=== PATIENT | female | born 2000 | race Caucasian/White ===

== ENCOUNTER 2022-10-03 21:29 | Emergency (ER) | payer BC, SELFPAY ==
[2022-10-03 21:35] VITALS: BP 132/85; PULSE 84; RESP 18; TEMP 36.2; O2SAT 99
--- NOTE | 2022-10-03 21:50 | CRLHL7_ITS ---
For Patients: As a result of the Century Cures Act, medical imaging exams and procedure reports are released immediately into your electronic medical record. You may view this report before your referring provider. If you have questions, please contact your health care provider. INDICATION: Chest pain. TECHNIQUE: Chest 1 views. COMPARISON: None. FINDINGS: Cardiovascular and mediastinum: Heart size and vasculature are normal in caliber and appearance. Lungs and pleural spaces: The lungs are clear. No pleural effusion or pneumothorax. Bones and soft tissues: No significant findings. IMPRESSION: No evidence of an acute pulmonary process. Dictated by Eitan Carbone MD @ 10/03/2022 10:29:09 PM (Electronically Signed)
--- NOTE | 2022-10-03 21:50 | ED_ITS ---
HPI - General Adult General Chief complaint: Cough Stated complaint: has a cold, dizziness Time Seen by Provider: 10/03/22 21:32 Source: patient Mode of arrival: ambulatory Limitations: no limitations History of Present Illness HPI narrative: Patient is a 21-year-old female coming in today complaining of cold-like symptoms for about 1 week. Sore throat, achiness, and a cough that just has not gotten any better. She has taken 3 at home COVID tests which have been negative. She denies any fevers that she is aware of. She came in today because she had an episode where she felt very dizzy for 1 minute. She felt lightheaded in the room felt distorted this has since passed and she has been feeling fine since. She is also concerned because she has a swollen lymph node in her neck and she felt that her left upper lip was swelling earlier but this has since resolved also. She denies any skin rashes. No changes in her appetite. No diarrhea. No chest or abdominal pain. Related Data Allergies Allergy/AdvReac Type Severity Reaction Status Date / Time No Known Drug Allergies Allergy Verified 10/03/22 21:39 Review of Systems Status of ROS: Reports: 10 or more systems reviewed and unremarkable except as noted in History and below [facility] Social History Smoking Status: Never smoker Do you use any of these nicotine containing products: None Second hand tobacco smoke exposure: No How often do you have a drink containing alcohol: never AUDIT-C Alcohol total score: 0 Non-prescribed substance use: denies use Exam Narrative: Exam Narrative: Well-nourished well-developed patient in no acute distress. Alert and oriented. Answers questions appropriately. Mood and affect are appropriate. Thoughts are goal oriented and rational. No tangential or magical thinking noted. Patient speaks in full sentences without needing to catch her breath. Does not appear ill or toxic. HEENT: Normocephalic atraumatic. Pupils are equally round reactive to light. Extraocular muscles are intact. Conjunctivae are moist without any icterus noted. Moist mucous membranes. Posterior pharynx is normal. Neck is soft with left-sided cervical lymphadenopathy. TMs are clear bilaterally. Lips appear normal. Tongue appears normal. Cardiovascular: Heart is regular rate and rhythm S1 and S2 are present without any murmurs. Lungs: Clear to auscultation bilaterally no wheezes rhonchi or rales are apprec iated. Patient takes deep breaths without any discomfort. Skin: Well perfused without any obvious rashes. Const: Vital Signs, click to edit/add: Vital Signs - 24 hr 10/03/22 21:35 Temperature 97.2 F L Pulse Rate [Left P ulse Oximeter] 84 Respiratory Rate 18 Blood Pressure [Ri ght Upper Arm] 132/85 Pulse Oximetry 99 Oxygen Delivery Me thod Room Air Course Course Hospital Course: Chest x-ray was done, read by me, does not show any acute infiltrates. Triple swab was negative. Strep was negative. Vital Signs Vital signs: Initial Vital Signs Respiratory Effort Spontaneous 10/03/22 21:34 Respiratory Depth Normal 10/03/22 21:34 Respiratory Pattern 10/03/22 21:34 Vital Signs Temperature 97.2 F L 10/03/22 21:35 Pulse Rate 84 10/03/22 21:35 Respiratory Rate 18 10/03/22 21:35 Blood Pressure 132/85 10/03/22 21:35 Pulse Oximetry 99 10/03/22 21:35 Oxygen Delivery Method 10/03/22 21:35 Temperature 97.2 F L 10/03/22 21:35 Pulse Rate 84 10/03/22 21:35 Respiratory Rate 18 10/03/22 21:35 Blood Pressure 132/85 10/03/22 21:35 Pulse Oximetry 99 10/03/22 21:35 Oxygen Delivery Method 10/03/22 21:35 Medical Decision Making MDM Narrative Medical decision making narrative: 21-year-old female with a URI. We discussed symptomatic treatment. As far as her episode of dizziness we discussed that this can happen when you are ill slightly dehydrated. Given that known lasted for 1 minute and has since resolved I do not think it is anything we need to be concerned about. as far as her lip swelling-she did receive a dose of Benadryl at when she was here. Again, this appears to have mostly resolved by the time she got here. We did discuss returning to the ER for any other concerning issues in certainly if she is not improving over the next few days. Patient had no other questions. Lab Data Lab results reviewed: Yes I reviewed the patient's lab results Labs: Lab Results 10/03/22 10/03/22 Range/Units 21:45 21:45 SARS-CoV-2 (PCR) Negative SARS-CoV-2 (Negative) Influenza Type A (PCR) Negative PCR FLU A (Negative) Influenza Type B (PCR) Negative PCR FLU B (Negative) RSV (PCR) Negative PCR RSV (Negative) Group A Strep DNA NOT DETECTED (Not Detectd) Imaging Data Chest x-ray: Attestation: I have reviewed the pertinent imaging results. Radiologist's impression: Chest 1 views. COMPARISON: None. FINDINGS: Cardiovascular and mediastinum: Heart size and vasculature are normal in caliber and appearance. Lungs and pleural spaces: The lungs are clear. No pleural effusion or pneumothorax. Bones and soft tissues: No significant findings. IMPRESSION: No evidence of an acute pulmonary process. Discharge Plan Discharge Clinical Impression: URI (upper respiratory infection) Patient Disposition: Home, Self-Care Condition: Stable Additional Instructions: Make sure to stay well hydrated and get plenty of rest. Okay to Tylenol as needed for achiness. Return to the ER if you feel like your symptoms are worsening over the next several days instead of getting air. We will call you with the results of your COVID, influenza and strep swabs. Stand Alone Forms: [employer] Info Instructions
[2022-10-03] MEDS: diphenhydrAMINE 25 MG CAPSULE PO (22:28)
[2022-10-03 22:30] LABS: Strep A DNA Probe* NOT DETECTED (Not Detectd)
[2022-10-03 22:41] LABS: PCR FLU A Negative PCR FLU A (Negative); PCR FLU B Negative PCR FLU B (Negative); PCR RSV Negative PCR RSV (Negative)
[2022-10-03 22:43] LABS: SARS PCR* Negative SARS-CoV-2 (Negative)
--- OUTSIDE RECORDS SUMMARY | 2022-10-31 12:17 | XMS_ITS ---
:2000 Author Organization [facility] Address [address] [place], [place] [id number] Care Team Providers Name Role Phone Shahzad Mcnamara Unavailable Unavailable PROBLEMS Type Condition ICD9-CM Code YRB31-HF Code Onset Condition SNO MED Code Dates Status Problem Allergic J30.1 Active 74241828 rhinitis due to pollen Problem Nasal congestion J34.89 Active 646 67446 with rhinorrhea Problem Chronic allergic J30.9 Active 615 22438 rhinitis Problem Other allergic J30.89 Active 70702 004 rhinitis ALLERGIES No Known Allergies ENCOUNTERS Encounter Location Date Diagnosis [facility] [id number] [place] [address], May, [facility] [place] [phone] [facility] [address] [place] [address], Feb, [facility] [place] [id number] [facility] [address] [place] [address], Feb, [facility] [place] [id number] [facility] [id number] [place] [address], January, [facility] rhinitis due to [facility] [place] [id number] pollen J30.1 ; Other allergic rhiniti s J30.89 and Nasal conges tion with rhinorrhea J34.89 [facility] [id number] [place] [address], Dec, [facility] [place] [id number] [facility] [address] [place] [address], Dec, Primary Care Physician [facility] [place] [id number] rhinitis J30.9 IMMUNIZATIONS No Known Immunizations SOCIAL HISTORY Never Assessed REASON FOR REFERRAL FUNCTIONAL STATUS PLAN OF CARE Activity Details Follow Up 1 Year, prn Reason: Future/Pending Procedure PRICK PUNCTURE# Future/Pending Procedure PRICK PUNCTURE# VITAL SIGNS Height 65.5 in 2021-01-29 Height 65.5 in 2018-12-27 Weight 122.2 lbs 2021-01-29 Weight 120.4 lbs 2018-12-27 Temperature 98.2 degrees Fahrenheit 2021-01-29 Temperature 97.9 degrees Fahrenheit 2018-12-27 Heart Rate 70 /min 2021-01-29 Heart Rate 66 /min 2018-12-27 Respiratory Rate 16 /min 2021-01-29 Respiratory Rate 16 /min 2018-12-27 BMI 20.02 kg/m2 2021-01-29 BMI 19.73 kg/m2 2018-12-27 Blood pressure systolic 102 mm Hg 2021-01-29 Blood pressure diastolic 60 mm Hg 2021-01-29 MEDICATIONS Medication Instructions Dosage Frequency Start End Duration Statu s Date Date Lexapro 10 MG Orally Once a 1 tablet 24h 30 day(s) A ctive day Flonase Nasally Once a 2 spray in 24h Active Allergy Relief day each 50 MCG/ACT nostril Accutane Not-Takin g Myorisan 30 MG TAKE 1 30 Not-Takin CAPSULE BY g MOUTH TWICE DAILY FOR 30 DAYS Cetirizine HCl Orally Once a 1 tablet 24h Ac tive 10 MG day PROCEDURES Procedure Date Ordered Result Body Site Normal BP January 29, 2021 Normal BMI January 29, 2021 PERCUT ALLERGY SKIN TESTS December 27, 2018 PERCUT ALLERGY SKIN TESTS January 29, 2021 RESULTS No Results REASON FOR VISIT allergy inj LMTCB 05/09/ cb 05/15, 1st injection will be late, Start IT N/A 02/10, Sheron is a 20 y, F here for BRANDY re: chronic allergic rhinitis (pollen). Pt interested in starting IT. Flonase/Cetirizine, IT/Testing Question , allergy testing Insurance Providers [facility] Health Member Patient Patient Patient Patient Patient Subscriber Subscriber Subscriber Group Insurance Plan Plan Plan Plan ID Relationship Address Phone Name Date of ID Name Date of No Type Insurance Insurance Insurance Coverage to Subscriber Address Phone Name Dates [address]UE [address] SARIAH Rogers 2000 4 [id number] [id number] [place] [address] [address] Sue 2000 4 [id number] [id number] [place] [address]
== END 2022-10-03 22:39 | disposition home or self-care (01) ==
LOC: ED 22:44
PROVIDERS: Emergency Provider Family Medicine
DX: J06.9 Acute upper respiratory infection, unspecified (principal)
CPT/HCPCS: 71045; 87502; 87634; 87635; 87651; 99284; A9270

== ENCOUNTER 2022-11-20 17:59 | Outpatient (CLI) | payer BC, SELFPAY | END 2022-11-20 18:00 | disposition home or self-care (01) | LOC: NFLDUCREF 18:00 | PROVIDERS: Visit Provider Registered Nurse | DX: R19.7 Diarrhea, unspecified (principal) | CPT/HCPCS: 87493 ==

== ENCOUNTER 2024-01-12 14:13 | Emergency (ER) | payer BC, SELFPAY ==
[2024-01-12 14:18] VITALS: BP 118/75; PULSE 74; RESP 18; TEMP 37; O2SAT 98; BMI 21.8
--- NOTE | 2024-01-12 14:45 | ED.GENADULT ---
HPI - General Adult General Chief complaint: Altered Mental Status Stated complaint: memory problems Time Seen by Provider: 01/12/24 14:20 History of Present Illness HPI narrative: 23-year-old female from [facility] [place]Note 2] attending [employer], who is majoring in psychology. She has a couple episodes where she could remember who a speaker was an about a week later had trouble writing some thank you notes. She was concerned by this as she called her doctor and they suggested she get checked. She is on control pills, takes Prozac, and has not had any recent illness, cough, cold, chest pain or breathing issue. She is neurologically intact and has no focal neurologic complaints. She has had no fevers, chills. She has been active, no head injury. She does report the remotely as a child she had a concussion type illness, but has had no recent head trauma or injury. She presents to be ?checked out?. Related Data Home Medications Medication Instructions Recorded Confirmed atorvastatin 10 mg tablet 10 mg PO DAILY 11/16/22 01/12/24 fluoxetine 20 mg capsule 20 mg PO DAILY 11/16/22 01/12/24 gabapentin 100 mg capsule 100 mg PO 3XD 11/16/22 01/12/24 levonorgestrel 0.15 mg-ethinyl 1 tab PO DAILY 11/16/22 01/12/24 estradiol 30 mcg tablets,3 mos pack(91) clonazepam 0.5 mg tablet 0.5 mg PO Q12H PRN anxiety attack 01/12/24 01/12/24 Allergies Allergy/AdvReac Type Severity Reaction Status Date / Time grass pollen Allergy Mild itchy Verified 01/12/24 14:29 eyes, hives weed pollen Allergy Mild Verified 01/12/24 14:29 Review of Systems Status of ROS: Reports: 6 or more systems reviewed and unremarkable except as noted in History and below PFS PFS Social History Smoking Status: Never smoker Do you use any of these nicotine containing products: None Second hand tobacco smoke exposure: No How often do you have a drink containing alcohol: never How often do you have six or more drinks on one occasion: Never AUDIT-C Alcohol total score: 0 Non-prescribed substance use: denies use service: No Exam Narrative: Exam Narrative: Objective: In general Sheron is a pleasant young person no distress. Vital signs are within normal limits HEENT is unremarkable pupils react equal reaction to light extra movements intact No facial asymmetry Neck is supple Pulses regular Heart rhythm regular heart murmur Neurologic upper lower extremities is normal Patient is able to heel-toe walk Is able to stand on each leg Lower extremity strength and sensation is normal and symmetric Const: Vital Signs, click to edit/add: Vital Signs - 24 hr 01/12/24 14:18 Temperature 98.6 F Pulse Rate [Pulse Oximeter] 74 Respiratory Rate 18 Blood Pressure [Ri ght Upper Arm] 118/75 Pulse Oximetry 98 Oxygen Delivery Me thod Room Air Course Vital Signs Vital signs: Initial Vital Signs Temperature 98.6 F 01/12/24 14:18 Temperature Source Temporal Artery Scan 01/12/24 14:18 Pulse Rate 74 01/12/24 14:18 Respiratory Rate 18 01/12/24 14:18 Blood Pressure 118/75 01/12/24 14:18 Blood Pressure Mean 89 01/12/24 14:18 Blood Pressure Position Sitting 01/12/24 14:18 Pulse Oximetry 98 01/12/24 14:18 Oxygen Delivery Method Room Air 01/12/24 14:18 Vital Signs Temperature 98.6 F 01/12/24 14:18 Pulse Rate 74 01/12/24 14:18 Respiratory Rate 18 01/12/24 14:18 Blood Pressure 118/75 01/12/24 14:18 Pulse Oximetry 98 01/12/24 14:18 Oxygen Delivery Method Room Air 01/12/24 14:18 Temperature 98.6 F 01/12/24 14:18 Pulse Rate 74 01/12/24 14:18 Respiratory Rate 18 01/12/24 14:18 Blood Pressure 118/75 01/12/24 14:18 Pulse Oximetry 98 01/12/24 14:18 Oxygen Delivery Method Room Air 01/12/24 14:18 Medical Decision Making MDM Narrative Medical decision making narrative: Patient is a very 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 She had a couple episodes of memory that if issue that concerned her, but it has not been recurrent or consistent. She has not had any headaches neurologic complaints. I think at this point to be reasonable to check her blood to just make sure she is not anemic or have any electrolyte abnormality, I do not think she needs any imaging of her head at this time given the infrequency of these 2 episodes and if they would continue I would recommend we do a CT of her head and consider MRI scanning as well. At this point however she has got a normal examination and reassuring history. Certainly this could be due to some anxiety or stress as well. She does not feel like that is an issue at this time and she feels mentally well. I would recommend observation and update her regular doctor within the next week to 10 days, return to ED sooner problems concerns worsening thank Lab Data Labs: Lab Results 01/12/24 Range/Units 14:50 WBC 7.02 (4.50-11.00) K/uL RBC 4.28 (4.00-5.20) m/uL Hgb 12.5 (12.0-16.0) gm/dL Hct 38.2 (33.0-51.0) % MCV 89 (80-100) fL MCH 29 (26-34) pg MCHC 33 (32-36) gm/dL RDW Coeff of Ruddy 11.7 (11.5-15.5) % Plt Count 314 (140-440) K/uL Neut % (Auto) 69.7 (42.0-72.0) % Lymph % (Auto) 18.2 L (20-44) % Bleckley % (Auto) 7.1 (0.0-11.0) % Eos % (Auto) 3.7 (0.0-7.0) % Baso % (Auto) 0.7 (0.0-3.0) % Neut # (Auto) 4.89 (1.7-7.0) K/uL Lymph # (Auto) 1.30 (0.90-2.90) K/uL Bleckley # (Auto) 0.50 (0.00-0.90) K/UL Eos # (Auto) 0.26 (0.00-0.50) K/uL Baso # (Auto) 0.05 (0.00-0.30) K/uL Abs Immat Gran (auto) 0.04 (0.00-0.30) K/uL Imm/Tot Granulo (auto) 0.6 % Sodium 138 (135-149) mmol/L Potassium 3.6 (3.6-5.1) mmol/L Chloride 105 (96-114) mmol/L Carbon Dioxide 27 (20-32) mmol/L Anion Gap 6 L (7-15) mEq/L BUN 8 (5-24) mg/dL Creatinine 0.6 (0.5-1.5) mg/dL Estimated Creat Clear 137.68 Estimated GFR 130 ml/min Glucose 98 (60-115) mg/dL Calcium 9.0 (8.4-10.6) mg/dL Discharge Plan Discharge Clinical Impression: Psychosocial stressors Patient Disposition: Home, Self-Care Condition: Stable Instructions: Stress (ED) Additional Instructions: Observe, update your regular doctor in the next 7-10 days, return if problems or concerns, headaches, recurrent symptoms. Continue home medications. Prescriptions: No Action levonorgestrel-ethinyl estrad 0.15 mg-30 mcg (91) tablets,dose pack,3 month 1 tab PO DAILY fluoxetine 20 mg capsule 20 mg PO DAILY Patient Comments: 40 mg daily atorvastatin 10 mg tablet 10 mg PO DAILY gabapentin 100 mg capsule 100 mg PO 3XD Patient Comments: 300 mg TID clonazepam 0.5 mg tablet 0.5 mg PO Q12H PRN (Reason: anxiety attack) Patient Comments: used when flying Follow Up/Referrals: Provider,Not a Local [Primary Care Provider] - Stand Alone Forms: [employer] Info Instructions
[2024-01-12 15:02] LABS: Basophils Absolute Auto 0.05 K/uL (0.00-0.30); Basophils Percent Auto 0.7 % (0.0-3.0); Eosinophils Absolute Auto 0.26 K/uL (0.00-0.50); Eosinophils Percent Auto 3.7 % (0.0-7.0); Hematocrit 38.2 % (33.0-51.0); Hemoglobin* 12.5 gm/dL (12.0-16.0); Immature Granulocytes Abs Auto 0.04 K/uL (0.00-0.30); Immature Granulocytes Pct Auto 0.6 %; Lymphocytes Percent Auto 18.2 % (20-44); Mean Corpuscular HGB Conc 33 gm/dL (32-36); Mean Corpuscular Hemoglobin 29 pg (26-34); Mean Corpuscular Volume 89 fL (80-100); Monocytes Percent Auto 7.1 % (0.0-11.0); Neutrophils Absolute Auto 4.89 K/uL (1.7-7.0); Neutrophils Percent Auto 69.7 % (42.0-72.0); Platelet Count* 314 K/uL (140-440); RDW Coefficient of Variation % 11.7 % (11.5-15.5); Red Blood Count 4.28 m/uL (4.00-5.20); White Blood Count* 7.02 K/uL (4.50-11.00)
[2024-01-12 15:04] LABS: Slide Review Reflex No
[2024-01-12 15:27] LABS: Chloride* 105 mmol/L (96-114); Potassium* 3.6 mmol/L (3.6-5.1); Sodium* 138 mmol/L (135-149)
[2024-01-12 15:30] LABS: Anion Gap 6 mEq/L (7-15); Blood Urea Nitrogen* 8 mg/dL (5-24); Carbon Dioxide* 27 mmol/L (20-32); Creatinine* 0.6 mg/dL (0.5-1.5); Est. Creatinine Clearance* 137.68; Estimated Glomerular Filt Rate 130 ml/min
[2024-01-12 15:31] LABS: Glucose* 98 mg/dL (60-115)
== END 2024-01-12 15:16 | disposition home or self-care (01) ==
PROVIDERS: Emergency Provider Family Medicine
DX: F43.9 Reaction to severe stress, unspecified (principal)
CPT/HCPCS: 36415; 80048; 85025; 99283; 99284